=== PATIENT | male | born 1975 | race Caucasian/White ===

== ENCOUNTER 2018-07-31 22:54 | Emergency (ER) | payer OTHER, BC ==
[2018-07-31 23:03] VITALS: BP 111/77; PULSE 59; TEMP 97.7; BMI 27.0
--- NOTE | 2018-08-01 00:06 | PDOC ---
History of Present Illness - General Chief Complaint: Injury Stated Complaint: HIT IN THE FACE WITH TOOL 2PM Time Seen by Provider: 07/31/18 23:12 - History of Present Illness Initial Comments: This otherwise healthy 42-year-old man, [employer], presents with history of superficial laceration of left cheek bone. At approximately 2 PM today, as he was working, a tool used to force open doors scraped the patient's left cheek bone, causing the area to be lacerated. EMS at the scene placed a small bandage. Since then, the patient has noted no excessive bleeding, other discharge or excessive pain from the area. Patient denies that there was a significant amount of blunt trauma to the cheekbone at the time of the injury. He did not fall and had no loss of consciousness. No other injury sustained Patient is up-to-date on tetanus prophylaxis Past History - Past Medical History Allergies/Adverse Reactions: Allergies Allergy/AdvReac Type Severity Reaction Status Date / Time No Known Allergies Allergy Verified 07/31/18 22:56 Home Medications: Ambulatory Orders NK [No Known Home Medication] 07/31/18 COPD: No Other medical history: DENIES - Immunization History Immunization Up to Date: Yes - Suicide/Smoking/Psychosocial Hx Smoking Status: No Smoking History: Never smoked Have you smoked in the past 12 months: No Number of Cigarettes Smoked Daily: 0 Information on smoking cessation initiated: No Hx Alcohol Use: No Drug/Substance Use Hx: No Review of Systems - Review of Systems Comments:: 12 point review of systems is negative except for what is noted in the history of present illness *Physical Exam - Vital Signs Last Vital Signs Temp Pulse Resp BP Pulse Ox 97.7 F 59 L 18 111/77 100 07/31/18 22:59 07/31/18 22:59 07/31/18 22:59 07/31/18 22:59 07/31/18 22:59 - Physical Exam Comments: GENERAL: Adult male, alert and oriented 3, in no acute distress HEAD: Normal with no signs of trauma. EYES: PERRLA, EOMI, sclera anicteric, conjunctiva clear. ENT: 1 cm nonbleeding, partial thickness laceration lateral aspect of the left zygoma; no deformity/tenderness/edema noted Facial exam otherwise normal NECK: Normal range of motion, supple without lymphadenopathy, JVD, or masses. EXTREMITIES: Normal range of motion, no edema. No clubbing or cyanosis. No erythema, or tenderness. NEUROLOGICAL: Cranial nerves II through XII grossly intact. Normal speech. No focal neurological deficits. MUSCULOSKELETAL: Back non-tender to palpation, no CVA tenderness SKIN: Warm, Dry, normal turgor, no rashes or lesions noted. Moderate Sedation - Procedure Monitoring Vital Signs: Procedure Monitoring Vital Signs Temperature 97.7 F 07/31/18 22:59 Pulse Rate 59 L 07/31/18 22:59 Respiratory Rate 18 07/31/18 22:59 Blood Pressure 111/77 07/31/18 22:59 O2 Sat by Pulse Oximetry (%) 100 07/31/18 22:59 Progress Note - Progress Note Progress Note: Area around the laceration cleansed using sterile normal saline. Skin edges closely approximated and wound closed using topical skin adhesive Patient tolerated procedure well Patient discharged with instructions keep the area as dry as possible for next 48 hours. He should return or see his doctor. Becomes red/swollen/painful or if there is any purulent discharge. *DC/Admit/Observation/Transfer Diagnosis at time of Disposition: Superficial laceration of face - Discharge Dispostion Disposition: HOME Condition at time of disposition: Stable - Referrals - Patient Instructions Printed Discharge Instructions: DI for Laceration Repair With Dermabond Additional Instructions: Keep wound as dry as possible for 24 hours Elevate head on extra pillow tonight Can put small bandage on area as needed; keep adhesive off of glued area Return or see your doctor if area of wound becomes red/swollen/painful - Post Discharge Activity
== END 2018-08-01 00:32 | disposition home or self-care (01) ==
LOC: FER 22:54
CPT/HCPCS: 99281-25